=== PATIENT | female | born 2000 | race Hispanic/Latino ===

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

== ENCOUNTER 2018-10-01 13:58 | Emergency (ER) | payer MEDICAID, OTHER ==
[~2018-10-01] VITALS: Ht 165.1 cm; Wt 95.3 kg
--- OUTSIDE RECORDS SUMMARY | 2018-10-01 14:01 | XMS REPORT ---
Author Author [facility] Address Unknown Phone Unavailable Care Team Providers Care Internal Control Specialist Name Role Phone Katie FUENTES Unavailable Unavailable Problems This patient has no known problems. Allergies, Adverse Reactions, Alerts This patient has no known allergies or adverse reactions. Medications This patient has no known medications. Results Test Description Test Time Test Comments Text Results Atomic Results Result Comments BREAST ULTRASOUND BILATERAL 2018-05-27 15:11:40 - BREAST ULTRASOUND BILATERALULTRASOUND OF BOTH BREASTS: 05/27/2018CLINICAL: Bilateral breast pain. No prior exams were available for comparison. Color flow and real-time ultrasound of both breasts were performed. De Jesus scale images of the real-time examination were reviewed. The breast tissue has scattered fibroglandular background echotexture. Bilateral survey ultrasound demonstrates no suspicious sonographic abnormality. No axillary lymphadenopathy was seen.IMPRESSION: NEGATIVE There is no sonographic evidence of malignancy. Age-appropriate follow-up, recommend annual screening mammogram starting at age 40 per ACR guidelines. Clinical follow up is also recommended, and further management of palpable abnormalities should be based on clinical examination.Dandy Amos M.D. ss/:05/27/2018 15:11:40 Entry: - 06/02/2018 07:15:07Imaging Technologist: Tiffanie BROWN, [facility]-FWletter sent: BIRADS 1-2 Normal Ultrasound BI-RADS: [address] ABDOMEN/PELVIS W 2017-11-04 21:49:00 [place] [id number] [place] [id number] Patient Name: CHAKA MAXWELL MR #: [id number] : 2000 Age/Sex: 17/F Req #: [id number] Adm Physician: Ordered by: IRIS GARDNER DIESEL DRAGLINE OPERATOR Report #: [id number] Location: ER Room/Bed: Procedure: [id number] CT/CT ABDOMEN/PELVIS W Exam Date: 11/04/17 Exam Time: 2043 REPORT STATUS: Signed EXAM: CT ABDOMEN/PELVIS W DATE: 11/04/2017 7:32 PM INDICATION: S firm localized supraumbical pain, Nausea/vomiting/D S [id number] COMPARISON: 10/10/2016 TECHNIQUE: The abdomen and pelvis were scanned using a multidetector helical scanner. Coronal and sagittal reformations were obtained. Routine protocol performed. IV Contrast: 100 ml Isovue 300/370 FINDINGS: LOWER THORAX: No consolidations LIVER/BILIARY: No masses. No ductal dilatation. GALLBLADDER: Unremarkable SPLEEN: Unremarkable PANCREAS: Unremarkable ADRENALS: No nodules KIDNEYS: Symmetric perfusion. No enhancing masses. No hydronephrosis. GI TRACT: No wall thickening or evidence of obstruction. Normal appendix. VESSELS: Unremarkable PERITONEUM/RETROPERITONEUM: No free air or fluid LYMPH NODES: No lymphadenopat hy REPRODUCTIVE ORGANS/BLADDER: Unremarkable SOFT TISSUES: Tiny fat- containing umbilical hernia. BONES: No suspicious bone lesions. IMPRESSION: No acute abnormality. Signed by: Dr Jewell Krishna MD on 11/04/2017 9:53 PM Dictated By: JEWELL KRISHNA MD 52 Transcribed By: NIGHAT on 11/04/172152 COPY TO: IRIS GARDNER NP
[2018-10-01] MEDS ORDERED: ONDANSETRON HCL INJ 2MG/ML 2ML 2 MG/ML VIAL IV ONE (14:04)
[2018-10-01] MEDS ORDERED: SODIUM CHLORIDE 0.9% 1000ML 1,000 ML IV STA (14:04)
[2018-10-01] MEDS ORDERED: KETOROLAC TROMETHAMINE 30 MG/ML VIAL IV ONE (14:04)
[2018-10-01 14:20] LABS: BILIRUBIN,URINE NEGATIVE (NEGATIVE); CLARITY,URINE SL CLOUDY (CLEAR); COLOR,URINE YELLOW (YELLOW); KETONES,URINE NEGATIVE (NEGATIVE); LEUKOCYTE ESTERASE ,URINE MODERATE (NEGATIVE); NITRITE,URINE NEGATIVE (NEGATIVE); PROTEIN,URINE DIPSTICK NEGATIVE (NEGATIVE); URINE UROBILINOGEN 0.2 mg/dL (0.2 - 1)
[2018-10-01 14:24] LABS: PREGNANCY TEST, URINE NEGATIVE (NEGATIVE)
[2018-10-01 14:27] LABS: BASOPHILS % 0.2 % (0.0-1.0); HEMATOCRIT 39.7 % (34.2-44.1); HEMOGLOBIN 13.4 g/dL (12.0-16.0); LYMPHOCYTES # (AUTO) 0.4 (1.0-3.2); LYMPHOCYTES % 8.2 % (18.0-39.1); MEAN CORPUSCULAR HEMOGLOBIN 28.2 pg (28-32); MEAN CORPUSCULAR HGB CONC 33.8 g/dL (31-35); MEAN CORPUSCULAR VOLUME 83.4 fL (81-99); MONOCYTES # (AUTO) 0.4 (0.2-0.8); MONOCYTES % 7.9 % (4.4-11.3); NEUTROPHILS # (AUTO) 4.5 (2.1-6.9); NEUTROPHILS % 83.5 % (38.7-80.0); PLATELET COUNT 179 x10e3/uL (140-360); RED BLOOD COUNT 4.76 x10e6/uL (3.6-5.1); RED CELL DISTRIBUTION WIDTH 12.6 % (11.7-14.4)
[2018-10-01 14:37] LABS: BACTERIA,URINE MODERATE /HPF; EPITHELIAL CELLS,URINE MANY /LPF; RBC,URINE 0-5 /HPF (0-5)
[2018-10-01] MEDS ORDERED: CEFTRIAXONE SOD 1 GM VIAL IV SCH (14:45)
[2018-10-01 14:50] LABS: ALANINE AMINOTRANSFERASE 20 IU/L (0-55); ALBUMIN 4.1 g/dL (3.5-5.0); ALBUMIN/GLOBULIN RATIO 1.3 (0.8-2.0); ALKALINE PHOSPHATASE 99 IU/L (40-150); ANION GAP 11.3 mmol/L (8-16); BLOOD UREA NITROGEN 12 mg/dL (7-26); BUN/CREATININE RATIO 16 (6-25); CALCIUM 9.3 mg/dL (8.4-10.2); CARBON DIOXIDE 22 mmol/L (22-29); CHLORIDE 105 mmol/L (98-107); CREATININE, SERUM 0.75 mg/dL (0.57-1.11); EST GLOMERULAR FILTRATION RATE > 60 ML/MIN (60-); GLUCOSE 100 mg/dL (74-118); LIPASE 11 U/L (8-78); POTASSIUM 3.3 mmol/L (3.5-5.1); SODIUM 135 mmol/L (136-145)
[2018-10-01] MEDS ORDERED: CEFTRIAXONE SOD 1 GM/NS 50 ML 50 ML IV ONE (15:00)
[2018-10-01] MEDS ORDERED: SODIUM CHLORIDE 0.9% 50ML 50 ML ONE (15:50)
[2018-10-01] MEDS ORDERED: IOPAMIDOL 370 MG/ML 200 ML INFUS..BTL INJ ONE (15:51)
--- NOTE | 2018-10-01 16:00 | Diagnostic Imaging Report ---
EXAM: CT Abdomen and Pelvis WITH contrast INDICATION: Right lower quadrant abdominal pain, query appendicitis. COMPARISON: None. TECHNIQUE: Abdomen and pelvis were scanned utilizing a multidetector helical scanner from the lung base to the pubic symphysis after administration of IV contrast. Coronal and sagittal reformations were obtained. Routine protocol was performed. Scan was performed when during portal venous phase. IV CONTRAST: 100 cc of Isovue 370 ORAL CONTRAST: Water COMPLICATIONS: None RADIATION DOSE: Total DLP: 884.7 mGy*cm Dose modulation, iterative reconstruction, and/or weight based adjustment of the mA/kV was utilized to reduce the radiation dose to as low as reasonably achievable. FINDINGS: LINES and TUBES: None. LOWER THORAX: Unremarkable HEPATOBILIARY: No evidence of focal lesion. No biliary ductal dilation. Diffuse mild fatty liver. GALLBLADDER: No radio-opaque stones or sludge. No wall thickening. SPLEEN: No splenomegaly. PANCREAS: No focal masses or ductal dilatation. ADRENALS: No adrenal nodules KIDNEYS/URETERS: Kidneys enhance symmetrically. No evidence of hydronephrosis, solid mass, or stone. GI TRACT: No evidence of wall thickening or distension. Appendix is normal. PELVIC ORGANS/BLADDER: Unremarkable. LYMPH NODES: Mildly enlarged mid abdominal mesenteric lymph nodes, measuring up to 1 cm, for example on series 2, image 39. VESSELS: Unremarkable. PERITONEUM / RETROPERITONEUM: No free air or fluid. BONES AND SOFT TISSUES: Unremarkable. CONCLUSION: Normal appendix. Mildly enlarged mesenteric lymph nodes are nonspecific. In the setting of acute abdominal pain, findings may represent mesenteric adenitis. Diffuse mild fatty liver. Signed by: Dr. He Dexter MD on 10/01/2018 3:57 PM
[2018-10-01 16:35] VITALS: BP 118/74
[2018-10-01 17:14] LABS: LYMPHOCYTES % (MANUAL) 8 % (19-48); MONOCYTES % (MANUAL) 6 % (3.4-9.0); NEUTROPHILS % (MANUAL) 86 % (40-74)
[2018-10-01 17:15] LABS: PLATELET ESTIMATE ADEQUATE; PLATELET MORPHOLOGY COMMENT NORMAL; RBC MORPHOLOGY COMMENT NORMAL
== END 2018-10-01 16:46 | disposition home or self-care (01) ==
LOC: ER 13:58
DX: N39.0 Urinary tract infection, site not specified (principal); R10.31 Right lower quadrant pain; I88.0 Nonspecific mesenteric lymphadenitis; R10.33 Periumbilical pain
CPT/HCPCS: 36415; 74177; 80053; 81001; 81025; 83690; 85025; 87086; 99284; J0696; J1885; J2405; J7030; Q9967